=== PATIENT | male | born 1945 | race Caucasian/White ===

== ENCOUNTER 2017-03-14 13:43 | Emergency (ER) | payer OTHER, BC ==
[~2017-03-14] VITALS: Ht 170.2 cm; Wt 111.6 kg
[~2017-03-14 13:43] MED LIST: BENAZEPRIL HCL20 MG PO; FLOMAX0.4 MG PO; LOTENSIN20 MG PO; PRILOSEC40 MG PO; TRAMADOL HCL50 MG PO
[2017-03-14 15:47] VITALS: BP 138/68
== END 2017-03-14 15:49 | disposition home or self-care (01) ==
LOC: EME 13:43
DX: M62.838 Other muscle spasm (principal); M25.511 Pain in right shoulder; R91.8 Other nonspecific abnormal finding of lung field; M51.34 Other intervertebral disc degeneration, thoracic region; I10 Essential (primary) hypertension
CPT/HCPCS: 71020; 72070; 99281; 99283